=== PATIENT | female | born 2000 | race Caucasian/White ===

== ENCOUNTER 2020-09-16 17:40 | Emergency (ER) | payer BC, OTHER ==
[~2020-09-16] VITALS: Ht 165 cm; Wt 91.4 kg
--- NOTE | 2020-09-16 17:59 | ED General ---
General Chief Complaint: Chest Pain Stated Complaint: CHEST PAIN Nursing Triage Note: Has had intermittent chest pain x 1.5 weeks. Pain is currently rated at 7/10. Can feel heart racing for the past two hours. Has had similar episode years ago and saw a sales coordinator. Was told she had tachycardia but was not placed on any medicine. Nursing Sepsis Screen: No Definite Risk History of Present Illness Date Seen by Provider: Sep 16, 2020 Time Seen by Provider: 17:59 Initial Comments Patient presenting to emergency department for evaluation of chest pain shortness of breath and tachycardia that has been going on for approximately 10 days and she says she felt that the pain was more sharp today and wanted to be seen in the emergency department. She says the pain is in her right mid parasternal region and that shoots into the left subcostal region and associated with shortness of breath and tachycardia. She says that it is present at rest or exertion and nothing she can think of necessarily makes it better or worse including exertion deep breaths movements eating or anything else that she can think of. She says she has seen a sales coordinator for her tachycardia and no specific diagnosis was given and she is not taking any medications. She is in no obvious distress with normal vital signs. Allergies and Home Medications Allergies Coded Allergies: acetaminophen (Verified Allergy, Unknown, states can't take it due to a b ad liver, 09/16/20) latex (Verified Allergy, Unknown, swelling, rash , 09/16/20) Patient Home Medication List Home Medication List Reviewed: Yes Review of Systems Review of Systems Constitutional: no symptoms reported EENTM: no symptoms reported Respiratory: short of breath Cardiovascular: chest pain Gastrointestinal: no symptoms reported Genitourinary: no symptoms reported Musculoskeletal: no symptoms reported Skin: no symptoms reported Psychiatric/Neurological: No Symptoms Reported All Other Systems Reviewed Negative Unless Noted: Yes Past Gfebpwm-Tqdasm-Wfpgjh Hx Patient Social History Alcohol Use: Denies Use Recreational Drug Use: No Smoking Status: Current Everyday Smoker Type Used: Cigarettes Recent Foreign Travel: No Contact w/Someone Who Travel: No Recent Infectious Disease Expo: No Recent Hopitalizations: No Physical Abuse: No Sexual Abuse: No Mistreated: No Fear: No Seasonal Allergies Seasonal Allergies: No Past Medical History Appendectomy, Gallbladder, Orthopedic Respiratory: Yes Asthma Cardiac: Yes (tachycardia ) Neurological: No Genitourinary: No Gastrointestinal: Yes ("bad liver" ) Musculoskeletal: No Endocrine: No HEENT: No Cancer: No Psychosocial: No Integumentary: No Blood Disorders: No Adverse Reaction/Blood Tranf: No Physical Exam Vital Signs Vital Signs - First Documented 09/16/20 17:47 Temp 36.8 Pulse 126 Resp 28 B/P (MAP) 147/70 (95) Pulse Ox 99 Capillary Refill : Less Than 3 Seconds Height, Weight, BMI Height: '" Weight: lbs. oz. kg; 33.00 BMI Method: General Appearance: No Apparent Distress, WD/WN HEENT: PERRL/EOMI Neck: Supple Respiratory: Lungs Clear, Normal Breath Sounds, No Respiratory Distress, Other Cardiovascular: Tachycardia Gastrointestinal: Non Tender, Soft Back: Normal Inspection Extremity: Normal Capillary Refill, No Pedal Edema Neurologic/Psychiatric: Alert, Oriented x3 Skin: Warm/Dry Progress/Results/Core Measures Suspected Sepsis Recent Fever Within 48 Hours: No Infection Criteria Present: None New/Unexplained Altered Menta: No Sepsis Screen: No Definite Risk SIRS Temperature: Pulse: 126 Respiratory Rate: 28 Laboratory Tests 09/16/20 17:55: White Blood Count 12.4H Blood Pressure 147 /70 Mean: 95 Laboratory Tests 09/16/20 17:55: Creatinine 0.59L, Platelet Count 376, Total Bilirubin 0.2 Results/Orders Lab Results Laboratory Tests Test 09/16/20 17:45 09/16/20 17:55 Range/Units Urine Color PALE YELLOW Urine Clarity CLEAR Urine pH 6.5 5-9 Urine Specific Melvin <=1.005 1.016-1.022 Urine Protein NEGATIVE NEGATIVE Urine Glucose (UA) NEGATIVE NEGATIVE Urine Ketones NEGATIVE NEGATIVE Urine Nitrite NEGATIVE NEGATIVE Urine Bilirubin NEGATIVE NEGATIVE Urine Urobilinogen 0.2 < = 1.0 MG/DL Urine Leukocyte Esterase NEGATIVE NEGATIVE Urine RBC (Auto) NEGATIVE NEGATIVE Urine RBC RARE /HPF Urine WBC RARE /HPF Urine Squamous Epithelial Cells 5-10 /HPF Urine Crystals NONE /LPF Urine Bacteria NEGATIVE /HPF Urine Casts NONE /LPF Urine Mucus NEGATIVE /LPF Urine Culture Indicated NO Urine Test NEGATIVE NEGATIVE White Blood Count 12.4 H 4.3-11.0 10^3/uL Red Blood Count 4.97 4.35-5.85 10^6/uL Hemoglobin 14.7 11.5-16.0 G/DL Hematocrit 43 35-52 % Mean Corpuscular Volume 87 80-99 FL Mean Corpuscular Hemoglobin 30 25-34 PG Mean Corpuscular Hemoglobin Concent 34 32-36 G/DL Red Cell Distribution Width 12.5 10.0-14.5 % Platelet Count 376 130-400 10^3/uL Mean Platelet Volume 9.2 7.4-10.4 FL Immature Granulocyte % (Auto) 1 % Neutrophils (%) (Auto) 62 42-75 % Lymphocytes (%) (Auto) 28 12-44 % Monocytes (%) (Auto) 7 0-12 % Eosinophils (%) (Auto) 3 0-10 % Basophils (%) (Auto) 0 0-10 % Neutrophils # (Auto) 7.7 1.8-7.8 X 10^3 Lymphocytes # (Auto) 3.5 1.0-4.0 X 10^3 Monocytes # (Auto) 0.8 0.0-1.0 X 10^3 Eosinophils # (Auto) 0.3 0.0-0.3 10^3/uL Basophils # (Auto) 0.1 0.0-0.1 10^3/uL Immature Granulocyte # (Auto) 0.1 0.0-0.1 10^3/uL D-Dimer 0.22 0.00-0.49 UG/ML Sodium Level 140 135-145 MMOL/L Potassium Level 3.4 L 3.6-5.0 MMOL/L Chloride Level 104 98-107 MMOL/L Carbon Dioxide Level 22 21-32 MMOL/L Anion Gap 14 5-14 MMOL/L Blood Urea Nitrogen 9 7-18 MG/DL Creatinine 0.59 L 0.60-1.30 MG/DL Estimat Glomerular Filtration Rate > 60 BUN/Creatinine Ratio 15 Glucose Level 112 H 70-105 MG/DL Calcium Level 9.0 8.5-10.1 MG/DL Corrected Calcium 8.5-10.1 MG/DL Total Bilirubin 0.2 0.1-1.0 MG/DL Aspartate Amino Transf (AST/SGOT) 14 5-34 U/L Alanine Aminotransferase (ALT/SGPT) 11 0-55 U/L Alkaline Phosphatase 86 40-136 U/L Troponin I < 0.30 <0.30 NG/ML Total Protein 7.5 6.4-8.2 GM/DL Albumin 4.6 H 3.2-4.5 GM/DL [facility] Orders - ARLET MARTINEZ DO Cbc With Automated Diff (09/16/20 18:03) Comprehensive Metabolic Panel (09/16/20 18:03) Hcg,Qualitative Urine (09/16/20 18:03) Chest 1 View Ap/Pa Only (09/16/20 18:03) Ekg Tracing (09/16/20 18:03) Troponin I Fs (09/16/20 18:03) Ua Culture If Indicated (09/16/20 18:03) Fibrin Degradation Products (09/16/20 18:03) Iv/Invasive Line Insertion .IV start (09/16/20 18:03) Fentanyl Injection (Sublimaze Injection (09/16/20 18:15) Ns Iv 1000 Ml (Sodium Chloride 0.9%) (09/16/20 18:15) Ketorolac Injection (Toradol Injection) (09/16/20 18:15) Potassium Chloride (Tablet) (K Dur Table (09/16/20 19:00) Medications Given in ED Current Medications Medications Dose Ordered Sig/Michael Route Start Time Stop Time Status Last Admin Dose Admin Fentanyl Citrate 75 mcg ONCE ONCE IVP 09/16/20 18:15 09/16/20 18:16 DC 09/16/20 18:25 75 MCG Ketorolac Tromethamine 15 mg ONCE ONCE IVP 09/16/20 18:15 09/16/20 18:16 DC 09/16/20 18:26 15 MG Vital Signs/I&O 09/16/20 17:47 Temp 36.8 Pulse 126 Resp 28 B/P (MAP) 147/70 (95) Pulse Ox 99 Capillary Refill : Less Than 3 Seconds Blood Pressure Mean: 95 Progress Note : Progress Note Patient with pain that is atypical for ACS in my opinion and her heart scores equal to 0. Will check labs imaging treat symptoms and reassess. Patient has negative workup and her heart rate has improved into the 80s and she says that her pain has improved. I told her this is likely GI or possibly lung type pain and that she could try taking ibuprofen for her pain and then follow with primary care provider within 2-3 days for recheck and to come back to emergency department with worsening pain fevers vomiting or other general concerns. Patient aware and agreeable with plan for discharge and verbalized understanding of the need for short-term follow-up and strict ED return precautions discussed. Departure Impression Primary Impression: Chest pain at rest Additional Impression: Hypokalemia Disposition: HOME, SELF-CARE Condition: Stable Departure-Patient Inst. Referrals: JOANNE KEATING APRN (PCP/Family) Primary Care Physician Patient Instructions: Chest Pain That Is Not Caused by the Heart (DC) Work/School Note: Work Release Form Date Seen in the Emergency Department: Sep 16, 2020 Return to Work: Sep 17, 2020 Restrictions: No Restrictions ARLET MARTINEZ DO Sep 16, 2020 17:59
[2020-09-16] MEDS ORDERED: NS IV 1000 ML 1,000 ML IV SCH (18:15)
[2020-09-16] MEDS ORDERED: KETOROLAC 30 MG/ML VIAL IVP ONE (18:15)
[2020-09-16] MEDS ORDERED: fentaNYL INJECTION 100 MCG/2 ML AMP IVP ONE (18:15)
--- NOTE | 2020-09-16 18:20 | Diagnostic Imaging Report ---
EXAMINATION: Chest 1 view HISTORY: Chest pain COMPARISON: None available. FINDINGS: Heart size and pulmonary vasculature are normal. The lungs are clear without consolidation, pleural effusion, or pneumothorax. The osseous structures are intact. IMPRESSION: 1. No acute radiographic abnormality in the chest. Dictated by: Dictated on workstation # [id number]
[2020-09-16 18:39] LABS: BASOPHILS # (AUTO) 0.1 10^3/uL (0.0-0.1); BASOPHILS % (AUTO) 0 % (0-10); EOSINOPHILS # (AUTO) 0.3 10^3/uL (0.0-0.3); EOSINOPHILS % (AUTO) 3 % (0-10); HEMATOCRIT 43 % (35-52); HEMOGLOBIN 14.7 G/DL (11.5-16.0); LYMPHOCYTES # (AUTO) 3.5 X 10^3 (1.0-4.0); LYMPHOCYTES % (AUTO) 28 % (12-44); MEAN CORPUSCULAR HEMOGLOBIN 30 PG (25-34); MEAN CORPUSCULAR HGB CONC 34 G/DL (32-36); MEAN CORPUSCULAR VOLUME 87 FL (80-99); MEAN PLATELET VOLUME 9.2 FL (7.4-10.4); MONOCYTES # (AUTO) 0.8 X 10^3 (0.0-1.0); MONOCYTES % (AUTO) 7 % (0-12); NEUTROPHILS # (AUTO) 7.7 X 10^3 (1.8-7.8); NEUTROPHILS % (AUTO) 62 % (42-75); PLATELET COUNT 376 10^3/uL (130-400); WHITE BLOOD COUNT 12.4 10^3/uL (4.3-11.0)
[2020-09-16 18:40] LABS: BILIRUBIN,TOTAL 0.2 MG/DL (0.1-1.0); BUN/CREATININE RATIO 15; CARBON DIOXIDE 22 MMOL/L (21-32); CHLORIDE 104 MMOL/L (98-107); CREATININE SERUM 0.59 MG/DL (0.60-1.30); GFR ESTIMATED > 60; GLUCOSE 112 MG/DL (70-105); POTASSIUM 3.4 MMOL/L (3.6-5.0); SODIUM 140 MMOL/L (135-145)
[2020-09-16 18:41] LABS: ALANINE AMINOTRANSFERASE 11 U/L (0-55); ALBUMIN 4.6 GM/DL (3.2-4.5); ALKALINE PHOSPHATASE 86 U/L (40-136); TOTAL PROTEIN 7.5 GM/DL (6.4-8.2)
[2020-09-16 18:44] LABS: BACTERIA,URINE NEGATIVE /HPF; BILIRUBIN,URINE NEGATIVE (NEGATIVE); CLARITY,URINE CLEAR; COLOR,URINE PALE YELLOW; GLUCOSE, URINE (UA) NEGATIVE (NEGATIVE); KETONES,URINE NEGATIVE (NEGATIVE); LEUKOCYTE ESTERASE ,URINE NEGATIVE (NEGATIVE); NITRITE,URINE NEGATIVE (NEGATIVE); PH,URINE 6.5 (5-9); PROTEIN,URINE NEGATIVE (NEGATIVE); RBC,URINE RARE /HPF; WBC,URINE RARE /HPF
[2020-09-16] MEDS ORDERED: KCL 20 MEQ TAB (K-DUR) PO ONE (19:00)
[2020-09-16 19:11] VITALS: BP 122/71
== END 2020-09-16 19:11 | disposition home or self-care (01) ==
LOC: ER FS 17:41
DX: R07.9 Chest pain, unspecified (principal); E87.6 Hypokalemia; F17.210 Nicotine dependence, cigarettes, uncomplicated; Z91.040 Latex allergy status; Z88.6 Allergy status to analgesic agent
CPT/HCPCS: 36415; 71045; 80053; 81000; 84484; 84703; 85025; 85379; 93005

== ENCOUNTER → 2020-10-13 | Outpatient (CLI) | payer BC | LOC: CARD 13:00 | PROVIDERS: ATTEND Internal Medicine Cardiovascular Disease | DX: R00.2 Palpitations (principal); R07.89 Other chest pain; R06.02 Shortness of breath | CPT/HCPCS: 36415; 84443; 93225; 93226; 93306; 93351 ==

== ENCOUNTER 2021-01-18 06:39 | Outpatient (CLI) | payer BC, OTHER ==
[~2021-01-18] VITALS: Ht 165.1 cm; Wt 88.6 kg
[2021-01-18] MEDS ORDERED: ATEN25TA PO (14:46)
== END 2021-01-18 14:51 ==
LOC: PREOP 06:39
PROVIDERS: ATTEND Obstetrics & Gynecology
DX: Z01.812 Encounter for preprocedural laboratory examination (principal); R10.2 Pelvic and perineal pain; R06.00 Dyspnea, unspecified

== ENCOUNTER 2021-01-25 08:32 | Day surgery (SDC) | payer BC, OTHER ==
[2021-01-25] VITALS (11 sets, daily range): BP systolic 98–117; BP diastolic 55–82
[~2021-01-25] VITALS: Ht 165.1 cm; Wt 88.6 kg
[~2021-01-25 08:32] MED LIST: ATEN25TA PO
[2021-01-25] MEDS ORDERED: METHYLENE BLUE 0.5% (PROVAYBLUE) 50 mg/10 ml vial IV ONE (09:16)
[2021-01-25] MEDS ORDERED: BUPIVACAINE 0.25% 30 ML (SENSORCAINE) VIAL ONE (09:16)
[2021-01-25] MEDS: LACTATED RINGERS 1,000 ML IV PRN ×2 (09:51→10:52)
[2021-01-25 09:54] LABS: BASOPHILS # (AUTO) 0.1 10^3/uL (0.0-0.1); BASOPHILS % (AUTO) 1 % (0-10); EOSINOPHILS # (AUTO) 0.4 10^3/uL (0.0-0.3); EOSINOPHILS % (AUTO) 5 % (0-10); HEMATOCRIT 37 % (35-52); HEMOGLOBIN 12.6 g/dL (11.5-16.0); LYMPHOCYTES # (AUTO) 3.1 10^3/uL (1.0-4.0); LYMPHOCYTES % (AUTO) 36 % (12-44); MEAN CORPUSCULAR HEMOGLOBIN 30 pg (25-34); MEAN CORPUSCULAR HGB CONC 34 g/dL (32-36); MEAN CORPUSCULAR VOLUME 87 fL (80-99); MEAN PLATELET VOLUME 9.4 fL (9.0-12.2); MONOCYTES # (AUTO) 0.6 10^3/uL (0.0-1.0); MONOCYTES % (AUTO) 7 % (0-12); NEUTROPHILS # (AUTO) 4.5 10^3/uL (1.8-7.8); NEUTROPHILS % (AUTO) 52 % (42-75); PLATELET COUNT 272 10^3/uL (130-400); WHITE BLOOD COUNT 8.6 10^3/uL (4.3-11.0)
[2021-01-25] MEDS ORDERED: RT-ALBUINH INH (10:01)
--- NOTE | 2021-01-25 10:10 | History & Physical-Surgical ---
HPO-Surgical History of Present Illness Chief Complaint: Chronic pelvic pain, Dysmenorrhea Diagnosis/Surgical Indication: CPP, dysparuria Procedure: DXLS with chromotubation Date of Surgery: Jan 25, 2021 Allergies and Home Medications Allergies Coded Allergies: acetaminophen (Verified Allergy, Unknown, states can't take it due to a bad liver, 09/16/20) lamotrigine (Verified Allergy, Unknown, 01/18/21) latex (Verified Allergy, Unknown, swelling, rash , 09/16/20) vinyl ether (Verified Allergy, Unknown, 01/18/21) Home Medications Albuterol Sulfate 1 Puff Puff, 2 PUFF INH Q8H, (Reported) 1 PUFF = 90 MCG Atenolol 25 Mg Tablet, 25 MG PO DAILY, (Reported) Patient Home Medication List Home Medication List Reviewed: Yes Past Gqxmubv-Wnduyj-Dcrqob Hx Patient Social History Recent Hopitalizations: No Seasonal Allergies Seasonal Allergies: No Surgeries Appendectomy, Gallbladder, Orthopedic Respiratory Yes Cardiovascular Yes (tachycardia ) Neurological No Genitourinary No Gastrointestinal Yes ("bad liver" ) Musculoskeletal No Endocrine History of Endocrine Disorders: No HEENT History of HEENT Disorders: No Cancer No Psychosocial History of Psychiatric Problem: No Integumentary History of Skin or Integumenta: No Blood Transfusions History of Blood Disorders: No Adverse Reaction to a Blood Tr: No Exam Vital Signs Capillary Refill : Labs Laboratory Tests Test 01/25/21 09:30 Range/Units White Blood Count 8.6 4.3-11.0 10^3/uL Red Blood Count 4.23 3.80-5.11 10^6/uL Hemoglobin 12.6 11.5-16.0 g/dL Hematocrit 37 35-52 % Mean Corpuscular Volume 87 80-99 fL Mean Corpuscular Hemoglobin 30 25-34 pg Mean Corpuscular Hemoglobin Concent 34 32-36 g/dL Red Cell Distribution Width 12.2 10.0-14.5 % Platelet Count 272 130-400 10^3/uL Mean Platelet Volume 9.4 9.0-12.2 fL Immature Granulocyte % (Auto) 0 % Neutrophils (%) (Auto) 52 42-75 % Lymphocytes (%) (Auto) 36 12-44 % Monocytes (%) (Auto) 7 0-12 % Eosinophils (%) (Auto) 5 0-10 % Basophils (%) (Auto) 1 0-10 % Neutrophils # (Auto) 4.5 1.8-7.8 10^3/uL Lymphocytes # (Auto) 3.1 1.0-4.0 10^3/uL Monocytes # (Auto) 0.6 0.0-1.0 10^3/uL Eosinophils # (Auto) 0.4 H 0.0-0.3 10^3/uL Basophils # (Auto) 0.1 0.0-0.1 10^3/uL Immature Granulocyte # (Auto) 0.0 0.0-0.1 10^3/uL General Appearance: Alert, Oriented X3 HEENT: Atraumatic Respiratory: Clear to Auscultation Cardiovascular: Regular Rate Abdominal: Normal Bowel Sounds Extremities: No Clubbing Skin: No Rashes Neuro: Normal Gait Psych/Mental Status: Mental Status NL Assessment/Plan Assessment and Plan Diagnosis: 20 yo G0 with chronic pelvic pain Dysmenorrhea Plan: Diagnostic laparoscopy w/ chromotubation. Admission Diagnosis Admission Status: Other (Outpt Proc) BRICE LAKE DO Jan 25, 2021 10:10
[2021-01-25] MEDS ORDERED: fentaNYL INJ 100 MCG/2 ML AMP ONE (10:13)
[2021-01-25] MEDS ORDERED: MIDAZOLAM 2 MG/2 ML (VERSED) VIAL ONE (10:13)
--- NOTE | 2021-01-25 10:13 | Discharge Inst-Women's Service ---
Discharge Inst-Women's Serv Depart Medication/Instructions New, Converted or Re-Newed RX: RX on Chart Problems Reviewed?: Yes Consults/Follow Up Additional Follow Up: Yes Orders/Referrals Dr. Story in 7-10 days Activity Activity: Activity as Tolerated Driving Instructions: No Driving for 1 Week NO SMOKING: NO SMOKING Nothing Inside Vagina: No Douching, No [place], No Tampons Diet Discharge Diet: No Restrictions Symptoms to Report to : Bleeding Excessive, Pain Increased, Fever Over 101 Degrees F, Vaginal Bleeding Increase, Questions/Concerns For Any Problems or Questions: Contact Your Physician Skin/Wound Care Infection Signs and Symptoms: Increased Redness, Foul Odor of Wound, Increased Drainage, Skin Itchy or Has a Rash, Increased Swelling, Temperature Above 101 F Operative Area Clean and Dry: Keep Incision Clean/Dry Stitches/King/Dermabond: Dermabond, Care of Stitches Bathing Instructions: BRICE Ross DO Jan 25, 2021 10:13
[2021-01-25] MEDS ORDERED: ACHD5005 PO (10:14)
[2021-01-25] MEDS ORDERED: IBUP-1773 PO (10:14)
[2021-01-25] MEDS ORDERED: D5 LR IV SOLUTION 1,000 ML IV SCH (10:15)
[2021-01-25] MEDS ORDERED: ONDANSETRON 4 MG/2 ML (SDV) Z0FRAN IVP PRN ×2 (10:15→11:30)
[2021-01-25] MEDS ORDERED: KETOROLAC 30 MG/ML VIAL IVP ONE (10:15)
[2021-01-25] MEDS ORDERED: HYDROcodone/APAP 5 MG/325 MG (LORTAB) TAB PO PRN (10:15)
[2021-01-25] MEDS ORDERED: HYDROmorphone 2 MG/ML VIAL (DILAUDID) ONE (10:53)
[2021-01-25] MEDS ORDERED: morphine INJ 10 MG/ML 1ML (SYR OR VIAL) IVP ONE (11:30)
[2021-01-25] MEDS ORDERED: HYDROmorphone 2 MG/ML VIAL (DILAUDID) IV ONE (11:30)
[2021-01-25] MEDS ORDERED: PROMETHAZINE INJ 25 MG/ML (PHENERGAN) AMP IVP ONE (11:30)
[2021-01-25] MEDS ORDERED: KETOROLAC 30 MG/ML VIAL ONE (11:34)
[2021-01-25] MEDS ORDERED: ROCURONIUM 10 MG/ML 5 ML SYRINGE IV ONE (12:15)
[2021-01-25] MEDS ORDERED: proPOfol 200 MG/20 ML (DIPRIVAN) VIAL IV ONE (12:15)
[2021-01-25] MEDS ORDERED: GLYCOPYRROLATE 0.2 MG/ML (ROBINUL) 2 ML VIAL ONE (12:15)
[2021-01-25] MEDS ORDERED: SEVOFLURANE (ULTANE) 15 ML INHAL SOLN ONE (12:15)
[2021-01-25] MEDS ORDERED: ONDANSETRON 4 MG/2 ML (SDV) Z0FRAN ONE (12:15)
[2021-01-25] MEDS ORDERED: LIDOCAINE PF 2% 5 ML (XYLOCAINE) VIAL ONE (12:15)
[2021-01-25] MEDS ORDERED: NEOSTIGMINE 3 MG/3 ML VIAL ONE (12:15)
--- NOTE | 2021-01-25 12:50 | Anesthesia-General Post-Op ---
General Patient Condition Mental Status/LOC: Same as Preop Cardiovascular: Satisfactory Nausea/Vomiting: Absent Respiratory: Satisfactory Pain: Controlled Complications: Absent Post Op Complications Complications None Follow Up Care/Instructions Patient Instructions None needed. Anesthesia/Patient Condition Patient Condition Patient is doing well, no complaints, stable vital signs, no apparent adverse anesthesia problems. No complications reported per nursing. TAM PEREZ CRNA Jan 25, 2021 12:50
--- NOTE | 2021-01-25 20:39 | OPERATIVE REPORT ---
DATE OF SERVICE: PREOPERATIVE DIAGNOSES: 1. A 20-year-old female with dysmenorrhea. 2. Chronic pelvic pain. POSTOPERATIVE DIAGNOSES: 1. A 20-year-old female with dysmenorrhea. 2. Chronic pelvic pain. 3. Endometriosis implants of the bilateral ovarian fossa. PROCEDURES PERFORMED: Operative laparoscopy with cauterization of endometriosis implants and chromotubation. SURGEON: Brice Lake DO. ANESTHESIA: LMA general. ESTIMATED BLOOD LOSS: Minimal. URINE OUTPUT: 150 mL clear at the end of the procedure. FLUIDS: 800 mL lactated Ringer's solution. FINDINGS: A grossly normal appearing bilateral fallopian tubes with spillage of methylene blue dye from the right fallopian tube, grossly normal-appearing uterus, grossly normal appearing bilateral ovaries. Endometriosis implants that appeared dark and hemosiderin laden in the bilateral ovarian fossa. Otherwise, grossly normal serosal surfaces of the pelvic anatomy. SPECIMEN SENT: None. INDICATIONS FOR PROCEDURE: This 20-year-old female is a patient, who have self-consulted to my office for chronic pelvic pain and pain with periods. She had researched and suspected that she may have endometriosis and stated that she it had run in her family in the past. I discussed with the patient in detail the first measures for dealing with endometriosis including contraceptive management and NSAID therapy, both of which she had tried without any kind of improvement in her symptoms and she is wanting to find out more. We also discussed her desire for fertility and she is wanting to know if her fallopian tubes were actually patent as she is not using anything for contraception at the time. Therefore, we discussed proceeding with chromotubation. Risks of the procedure were discussed with the patient in detail including risk of bleeding, infection, damage to the surrounding structures including, but not limited to bowel, bladder, ureter, kidneys, possible need for reoperation, postoperative complications that may occur, risk from anesthesia, recovery timeframe and even . After everything was discussed with the patient in detail, consent was obtained in the preoperative area and the patient was taken to the operating room. OPERATIVE REPORT IN DETAIL: Once in the operating room, general anesthesia was found to be adequate. She was placed in the dorsal lithotomy position and prepped and draped in a normal sterile fashion. Timeout was performed. A Sarmiento catheter was placed using a sterile technique. Weighted speculum was inserted into the patient's vagina. Right angle retractor was used to visualize the cervix. It was grasped at 12 o'clock position using a long Allis clamp. I then gently sounded the uterine cavity, depth was found to be 8 cm. I placed a Kronner uterine manipulator to a depth of 8 cm. I removed all the other instruments from the patient's vagina, performed a change of gloves, obtained my attention to the abdomen, where infraumbilically I infiltrated this area using 0.25% Marcaine. I made a 5 mm incision with a knife and directed Veress needle through the incision until intraperitoneal placement was confirmed using saline drop test. Opening pressure of 3 mmHg was noted and proceeded to a maximum pressure of 15 mmHg, at which point I removed the Veress needle and introduced a 5 mm blunt laparoscopic trocar. Once this was in place, I was able to confirm intraperitoneal placement using the laparoscope. There was no evidence of damage upon my entry. I then placed the patient in a steep Trendelenburg after briefly scanning the upper abdominal anatomy, which appears to be grossly normal. Once in a steep Trendelenburg, I was able to visualize all my pelvic anatomy as defined in my findings above. I then placed two other trocars, which to perform the cauterization of the endometriosis. These were suprapubic trocar and a left lower quadrant trocar. They are both placed in similar fashion with 5 mm incisions. Once both of these were in place, under direct visualization of laparoscope, I began by expecting all of the pelvic anatomy and then cauterizing the endometriosis implants I was able to find. I then performed a chromotubation using methylene blue, which was diluted in 100 mL of normal saline. There was rapid and adequate spillage of the dye from the right fallopian tube. The left fallopian tube does not show any evidence of patency. However, it may be positional due to the Kronner uterine manipulator, after which, due to tubal patency being confirmed in the right fallopian tube, I had the patient taken out of steep Trendelenburg and then copiously irrigated the pelvis using normal saline. Once again, there was no active bleeding from any of my dissection planes. I removed all the lower trocars under direct visualization of laparoscope. The infraumbilical trocar was left in place to release insufflation and I introduced 10 mL of 0.25% Marcaine into the peritoneal cavity for postoperative pain management. I then removed this trocar as well. The skin was reapproximated using Dermabond and Band-Aids were placed over the incisions. The Kronner uterine manipulator and Sarmiento catheter were removed at the end of the procedure. The patient tolerated the procedure well and was sent to the recovery area in a stable condition. Lap and sponge counts were correct at the end of the procedure. Instrument counts were correct as well. Job ID: [id number] DocumentID: [id number] Dictated Date: 01/25/2021 11:23:39 Consulting Networking Engineer Date: 01/25/2021 20:39:30 Dictated By: BRICE LAKE DO
== END 2021-01-25 13:52 | disposition home or self-care (01) ==
LOC: SDC 08:32
PROVIDERS: ATTEND Obstetrics & Gynecology
DX: N94.6 Dysmenorrhea, unspecified (principal); N80.1 Endometriosis of ovary; J30.2 Other seasonal allergic rhinitis; E66.9 Obesity, unspecified; G89.29 Other chronic pain; F17.210 Nicotine dependence, cigarettes, uncomplicated; Z68.32 Body mass index [BMI] 32.0-32.9, adult; Z91.040 Latex allergy status; Z88.6 Allergy status to analgesic agent; Z88.8 Allergy status to other drugs, medicaments and biological substances; Z79.899 Other long term (current) drug therapy; Z90.89 Acquired absence of other organs
CPT/HCPCS: 36415; 84703; 85025; 86850; 86900; 86901; 87081

== ENCOUNTER → 2021-06-29 | Outpatient (CLI) | payer OTHER ==
[~2021-06-29] MED LIST changes: +ACHD5005 PO; +IBUP-1773 PO; +RT-ALBUINH INH
== END ==
LOC: LAB FS 12:32
PROVIDERS: ATTEND Obstetrics & Gynecology
DX: N97.0 Female infertility associated with anovulation (principal)
CPT/HCPCS: 36415; 84144

== ENCOUNTER → 2021-07-28 | Outpatient (CLI) | payer OTHER | LOC: LAB FS 15:13 | PROVIDERS: ATTEND Obstetrics & Gynecology | DX: N97.0 Female infertility associated with anovulation (principal) | CPT/HCPCS: 36415; 84144 ==

== ENCOUNTER → 2021-10-12 | Outpatient (CLI) | payer OTHER | LOC: LAB FS 16:34 | PROVIDERS: ATTEND Family Medicine | DX: Z33.1 Pregnant state, incidental (principal) | CPT/HCPCS: 36415; 84702 ==

== ENCOUNTER → 2021-10-14 | Outpatient (CLI) | payer OTHER | LOC: LAB FS 07:34 | PROVIDERS: ATTEND Obstetrics & Gynecology | DX: Z36.89 Encounter for other specified antenatal screening (principal) | CPT/HCPCS: 36415; 84144; 84702 ==

== ENCOUNTER → 2021-11-05 | Outpatient (CLI) | payer OTHER ==
[2021-11-05 16:16] LABS: HEMATOCRIT 37 % (35-52); HEMOGLOBIN 12.4 g/dL (11.5-16.0); MEAN CORPUSCULAR HEMOGLOBIN 29 pg (25-34); MEAN CORPUSCULAR HGB CONC 34 g/dL (32-36); MEAN CORPUSCULAR VOLUME 87 fL (80-99); PLATELET COUNT 365 10^3/uL (130-400); WHITE BLOOD COUNT 9.6 10^3/uL (4.3-11.0)
[2021-11-05 16:17] LABS: MEAN PLATELET VOLUME 8.9 fL (9.0-12.2)
== END ==
LOC: LAB FS 15:22
PROVIDERS: ATTEND Family Medicine
DX: Z34.91 Encounter for supervision of normal pregnancy, unspecified, first trimester (principal); Z3A.00 Weeks of gestation of pregnancy not specified
CPT/HCPCS: 36415; 85027; 86592; 86703; 86762; 86850; 86900; 86901; 87088; 87340

== ENCOUNTER → 2022-03-22 | Outpatient (CLI) | payer OTHER | LOC: LAB FS 07:41 | PROVIDERS: ATTEND Family Medicine | DX: Z33.1 Pregnant state, incidental (principal) | CPT/HCPCS: 36415; 82950 ==

== ENCOUNTER → 2022-03-28 | Outpatient (CLI) | payer OTHER ==
[2022-03-28 10:18] LABS: HEMATOCRIT 34 % (35-52); HEMOGLOBIN 11.5 g/dL (11.5-16.0); MEAN CORPUSCULAR HEMOGLOBIN 30 pg (25-34); MEAN CORPUSCULAR HGB CONC 34 g/dL (32-36); MEAN CORPUSCULAR VOLUME 88 fL (80-99); MEAN PLATELET VOLUME 9.2 fL (9.0-12.2); PLATELET COUNT 270 10^3/uL (130-400); WHITE BLOOD COUNT 9.8 10^3/uL (4.3-11.0)
== END ==
LOC: LAB 09:35
PROVIDERS: ATTEND Family Medicine
DX: Z34.92 Encounter for supervision of normal pregnancy, unspecified, second trimester (principal); Z3A.00 Weeks of gestation of pregnancy not specified
CPT/HCPCS: 36415; 82947; 82951; 82952; 85027; 86780

== ENCOUNTER → 2022-04-11 | Outpatient (CLI) | payer OTHER | LOC: LABNPT 14:42 | PROVIDERS: ATTEND Family Medicine | DX: R10.9 Unspecified abdominal pain (principal) | CPT/HCPCS: 87088 ==

== ENCOUNTER → 2022-04-11 | Outpatient (CLI) | payer OTHER ==
[2022-04-11 12:49] LABS: BASOPHILS % (AUTO) 0 % (0-10); EOSINOPHILS # (AUTO) 0.1 10^3/uL (0.0-0.3); EOSINOPHILS % (AUTO) 1 % (0-10); HEMATOCRIT 34 % (35-52); HEMOGLOBIN 11.6 g/dL (11.5-16.0); LYMPHOCYTES # (AUTO) 2.4 10^3/uL (1.0-4.0); LYMPHOCYTES % (AUTO) 21 % (12-44); MEAN CORPUSCULAR HEMOGLOBIN 29 pg (25-34); MEAN CORPUSCULAR HGB CONC 34 g/dL (32-36); MEAN CORPUSCULAR VOLUME 86 fL (80-99); MEAN PLATELET VOLUME 9.4 fL (9.0-12.2); MONOCYTES % (AUTO) 9 % (0-12); NEUTROPHILS % (AUTO) 69 % (42-75); PLATELET COUNT 293 10^3/uL (130-400); WHITE BLOOD COUNT 11.6 10^3/uL (4.3-11.0)
[2022-04-11 13:17] LABS: CREATININE SERUM 0.41 MG/DL (0.60-1.30); POTASSIUM 3.6 MMOL/L (3.6-5.0)
[2022-04-11 13:18] LABS: ALBUMIN 3.6 GM/DL (3.2-4.5); BILIRUBIN,TOTAL 0.2 MG/DL (0.1-1.0); CALCIUM 8.2 MG/DL (8.5-10.1); TOTAL PROTEIN 6.5 GM/DL (6.4-8.2)
[2022-04-11 14:45] LABS: URIC ACID 3.9 MG/DL (2.6-7.2)
== END ==
LOC: LAB FS 12:08
PROVIDERS: ATTEND Family Medicine
DX: O13.9 Gestational [pregnancy-induced] hypertension without significant proteinuria, unspecified trimester (principal); Z3A.00 Weeks of gestation of pregnancy not specified
CPT/HCPCS: 36415; 80053; 82570; 83615; 84156; 84550; 85025

== ENCOUNTER → 2022-04-25 | Outpatient (CLI) | payer OTHER ==
[2022-04-25 08:07] LABS: BASOPHILS % (AUTO) 0 % (0-10); EOSINOPHILS # (AUTO) 0.2 10^3/uL (0.0-0.3); EOSINOPHILS % (AUTO) 2 % (0-10); HEMATOCRIT 32 % (35-52); HEMOGLOBIN 11.1 g/dL (11.5-16.0); LYMPHOCYTES # (AUTO) 2.3 10^3/uL (1.0-4.0); LYMPHOCYTES % (AUTO) 27 % (12-44); MEAN CORPUSCULAR HEMOGLOBIN 29 pg (25-34); MEAN CORPUSCULAR HGB CONC 34 g/dL (32-36); MEAN CORPUSCULAR VOLUME 85 fL (80-99); MEAN PLATELET VOLUME 9.2 fL (9.0-12.2); MONOCYTES # (AUTO) 0.6 10^3/uL (0.0-1.0); MONOCYTES % (AUTO) 7 % (0-12); NEUTROPHILS # (AUTO) 5.3 10^3/uL (1.8-7.8); NEUTROPHILS % (AUTO) 63 % (42-75); PLATELET COUNT 273 10^3/uL (130-400); WHITE BLOOD COUNT 8.5 10^3/uL (4.3-11.0)
[2022-04-25 10:48] LABS: SODIUM 138 MMOL/L (135-145)
[2022-04-25 10:49] LABS: ALANINE AMINOTRANSFERASE 10 U/L (0-55); ALBUMIN 3.2 GM/DL (3.2-4.5); ALKALINE PHOSPHATASE 102 U/L (40-136); BILIRUBIN,TOTAL < 0.2 MG/DL (0.1-1.0); BUN/CREATININE RATIO 12; CALCIUM 8.4 MG/DL (8.5-10.1); CARBON DIOXIDE 22 MMOL/L (21-32); CHLORIDE 105 MMOL/L (98-107); CREATININE SERUM 0.41 MG/DL (0.60-1.30); GFR ESTIMATED 143; GLUCOSE 95 MG/DL (70-105); POTASSIUM 3.3 MMOL/L (3.6-5.0)
[2022-04-25 15:19] LABS: URIC ACID 4.1 MG/DL (2.6-7.2)
== END ==
LOC: LAB FS 07:37
PROVIDERS: ATTEND Family Medicine
DX: O13.9 Gestational [pregnancy-induced] hypertension without significant proteinuria, unspecified trimester (principal); Z3A.00 Weeks of gestation of pregnancy not specified
CPT/HCPCS: 36415; 80053; 82570; 83615; 84156; 84550; 85025

== ENCOUNTER → 2022-05-12 | Outpatient (CLI) | payer OTHER | LOC: LABNPT 14:47 | PROVIDERS: ATTEND Family Medicine | DX: Z33.1 Pregnant state, incidental (principal) | CPT/HCPCS: 87081 ==

== ENCOUNTER 2022-06-08 13:51 | Inpatient (IN) | payer OTHER ==
[~2022-06-08] VITALS: Ht 165.1 cm; Wt 115.5 kg
[2022-06-08] VITALS (15 sets, daily range): BP systolic 80–156; BP diastolic 57–82
[2022-06-08] MEDS ORDERED: D5 LR IV SOLUTION 1,000 ML IV ONE (14:13)
[2022-06-08] MEDS ORDERED: OXYTOCIN PRE-MIX DRIP 500 ML IV SCH (14:15)
[2022-06-08] MEDS: D5 LR IV SOLUTION 1,000 ML IV SCH ×2 (14:43→18:05)
[2022-06-08 15:22] LABS: BASOPHILS % (AUTO) 0 % (0-10); EOSINOPHILS # (AUTO) 0.1 10^3/uL (0.0-0.3); EOSINOPHILS % (AUTO) 1 % (0-10); HEMATOCRIT 34 % (35-52); HEMOGLOBIN 11.3 g/dL (11.5-16.0); LYMPHOCYTES # (AUTO) 2.3 X 10^3 (1.0-4.0); LYMPHOCYTES % (AUTO) 24 % (12-44); MEAN CORPUSCULAR HEMOGLOBIN 28 pg (25-34); MEAN CORPUSCULAR HGB CONC 33 g/dL (32-36); MEAN CORPUSCULAR VOLUME 84 fL (80-99); MEAN PLATELET VOLUME 9.9 fL (9.0-12.2); MONOCYTES # (AUTO) 0.8 X 10^3 (0.0-1.0); MONOCYTES % (AUTO) 8 % (0-12); NEUTROPHILS # (AUTO) 6.4 X 10^3 (1.8-7.8); NEUTROPHILS % (AUTO) 67 % (42-75); PLATELET COUNT 379 10^3/uL (130-400); WHITE BLOOD COUNT 9.7 10^3/uL (4.3-11.0)
[2022-06-08 15:31] LABS: ALBUMIN 3.3 GM/DL (3.2-4.5); BILIRUBIN,TOTAL 0.2 MG/DL (0.1-1.0); CALCIUM 8.9 MG/DL (8.5-10.1); CREATININE SERUM 0.61 MG/DL (0.60-1.30); POTASSIUM 3.5 MMOL/L (3.6-5.0); TOTAL PROTEIN 6.5 GM/DL (6.4-8.2)
[2022-06-08] MEDS: ACETAMINOPHEN 500 MG TAB (TYLENOL) PO PRN (17:46)
[2022-06-08] MEDS ORDERED: BUTORPHANOL INJ 2 MG/ML (STADOL) VIAL ONE (18:23)
[2022-06-08] MEDS: BUTORPHANOL INJ 2 MG/ML (STADOL) VIAL IV PRN ×2 (18:28→20:18)
[2022-06-08] MEDS ORDERED: CATHETER FLUSH 10 ML SYR IV SCH (22:00)
[2022-06-09] VITALS (63 sets, daily range): BP systolic 100–140; BP diastolic 55–90
[2022-06-09] MEDS: BUTORPHANOL INJ 2 MG/ML (STADOL) VIAL IV PRN (00:09)
[2022-06-09] MEDS: D5 LR IV SOLUTION 1,000 ML IV SCH ×3 (00:45→13:29)
--- NOTE | 2022-06-09 00:45 | HISTORY AND PHYSICAL ---
DATE OF SERVICE: CHIEF COMPLAINT: BPP 4/8, attempted placement of Sarmiento bulb. HISTORY OF PRESENT ILLNESS: This is a 21-year-old 2, para 0-1-0-1, at 38 weeks and 4 days gestation, who was sent in by Dr. Olivera's office with a BPP of 4/8 off for tone and movement. The patient was having BPPs for gestational hypertension. Feels normal movement now, occasional cramping. Denies leaking of fluid or bleeding. Denies chest pain, shortness of air, cough, fevers, chills. No other complaints. PAST OBSTETRICAL HISTORY: Spontaneous vaginal delivery at 36 weeks x1. Her current complicated by gestational hypertension with sporadically elevated blood pressures in the office, but all have been normal since 35 weeks' gestation. PAST MEDICAL HISTORY: No current active medical problems. PAST SURGICAL HISTORY: Cholecystectomy, appendectomy, hip surgery. MEDICATIONS: vitamins. ALLERGIES: Please see nurses' notes. REVIEW OF SYSTEMS: She is accompanied by father of the baby. Denies tobacco, alcohol or drug use. 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 FAMILY HISTORY: Briefly reviewed, noncontributory. PHYSICAL EXAMINATION: VITAL SIGNS: Stable. She is afebrile. heart tones are category 1 and reactive giving her a BPP of 6/10. Vital signs are stable. She is afebrile. Blood pressures on initial evaluation are all normal. Did have one mildly elevated during attempted placement of Sarmiento bulb, but she denies headache, blurry vision, right upper quadrant pain. GENERAL: Alert and oriented x3, in no acute distress, resting comfortably in bed, obese. CHEST: Nonlabored. HEENT: Normocephalic, atraumatic. ABDOMEN: Gravid, obese, nontender. EXTREMITIES: Nontender. Cervical exam is fingertip, thick and high vertex, vulva without lesions. Urethra no masses or discharge. CBC and CMP unremarkable. EXTREMITIES: Nontender. IMPRESSION: G2, P0-1-0-1 at 38 weeks and 4 days' gestation with equivocal antepartum testing and gestational hypertension. PLAN: I discussed with the patient findings and recommendations to proceed with delivery. Risks of prematurity are outweighed at this point with clinical diagnoses and antepartum testing results. The patient is concerned about potential risk of and counseled with a previous vaginal delivery that risk is reduced, although still exist whenever an induction is performed, especially if there is any intolerance. Consent was obtained. Sarmiento bulb placed and ____ following. Questions answered to her satisfaction. PROCEDURE: Attempted to place Cook Sarmiento balloon by digital exam unsuccessful due to cervix being fingertip and obesity. Attempted to place with speculum; however, vaginal sidewalls fell into the view and was difficult to visualize the cervix. Instead, a 16-Amharic Sarmiento catheter was obtained and placed with guidewire without difficulty placing 60 mL of normal saline. The patient tolerated the procedure well and will continue to wait for expulsion. Job ID: [id number] DocumentID: [id number] Dictated Date: 06/08/2022 17:22:19 Architectural Wood Model Maker Date: 06/09/2022 00:07:53 Dictated By: Marianna Walker MD
[2022-06-09] MEDS: ACETAMINOPHEN 500 MG TAB (TYLENOL) PO PRN (03:14)
--- NOTE | 2022-06-09 07:18 | Labor Progress Note ---
Labor Progress Note Labor Progress Note Date Seen by Provider: Jun 09, 2022 Time Seen by Provider: 07:00 Subjective: Pt denies complaints. Objective: (Can we insert 24 hour vitals here?) Cervical exam: 4.5/50/-3 Consistency: [] Position: [] Presentation: [vtx] heart tones: cat I Tocometer: [2-3] ctx/10 minutes AROM with amnihook - clear fluid, head well-applied to cervix Assessment/Plan: Doris Camacho is a (21 /Para / ,Gestational Age (wks)37 here for []. CEFM/TOCO Continue pitocin/ Anesthesia: per her request Anticipate vaginal delivery. Vitals - Labs Vital Signs - I&O Vital Signs Date Time Temp Pulse Resp B/P (MAP) Pulse Ox O2 Delivery O2 Flow Rate FiO2 06/09/22 07:00 69 18 128/78 (95) Room Air 06/09/22 06:45 82 18 114/74 (87) Room Air 06/09/22 06:30 92 18 102/57 (72) Room Air 06/09/22 06:15 71 18 106/60 (75) Room Air 06/09/22 06:00 76 18 132/84 (100) Room Air 06/09/22 05:45 85 18 113/69 (84) Room Air 06/09/22 05:30 73 18 131/77 (95) Room Air 06/09/22 05:15 65 18 128/73 (91) Room Air 06/09/22 04:30 36.9 06/09/22 04:00 71 18 119/81 (94) Room Air 06/09/22 03:00 72 18 111/63 (79) Room Air 06/09/22 02:00 78 18 138/67 (90) Room Air 06/09/22 01:00 73 18 118/65 (82) Room Air 06/09/22 00:00 77 18 117/77 (90) Room Air 06/08/22 23:00 76 18 119/73 (88) Room Air 06/08/22 22:00 81 18 121/73 (89) Room Air 06/08/22 21:00 78 18 105/57 (73) Room Air 06/08/22 20:00 37.3 06/08/22 20:00 75 18 114/75 (88) Room Air 06/08/22 19:00 76 18 121/73 (89) Room Air 06/08/22 18:00 83 18 124/79 (94) Room Air 06/08/22 17:00 36.6 91 18 80/76 (77) Room Air 06/08/22 16:15 100 18 123/76 (92) Room Air 06/08/22 15:45 100 18 123/76 (92) Room Air 06/08/22 15:10 102 18 156/70 (98) Room Air 06/08/22 14:50 86 18 136/71 (92) Room Air 06/08/22 14:40 95 18 133/82 (99) Room Air 06/08/22 14:25 101 18 131/80 (97) Room Air 06/08/22 14:10 105 18 126/75 (92) Room Air 06/08/22 13:51 37.0 107 18 96 Room Air I & O 06/09/22 07:00 Intake Total 2000 ml Balance 2000 ml Labs Laboratory Tests 06/08/22 14:15: White Blood Count 9.7, Red Blood Count 4.05, Hemoglobin 11.3L, Hematocrit 34L, Mean Corpuscular Volume 84, Mean Corpuscular Hemoglobin 28, Mean Corpuscular Hemoglobin Concent 33, Red Cell Distribution Width 13.2, Platelet Count 379, Mean Platelet Volume 9.9, Immature Granulocyte % (Auto) 0, Neutrophils (%) (Auto) 67, Lymphocytes (%) (Auto) 24, Monocytes (%) (Auto) 8, Eosinophils (%) (Auto) 1, Basophils (%) (Auto) 0, Neutrophils # (Auto) 6.4, Lymphocytes # (Auto) 2.3, Monocytes # (Auto) 0.8, Eosinophils # (Auto) 0.1, Basophils # (Auto) 0.0, Immature Granulocyte # (Auto) 0.0, Sodium Level 139, Potassium Level 3.5L, Chloride Level 107, Carbon Dioxide Level 21, Anion Gap 11, Blood Urea Nitrogen 6L, Creatinine 0.61, Estimat Glomerular Filtration Rate 130, BUN/Creatinine Ratio 10, Glucose Level 90, Calcium Level 8.9, Corrected Calcium 9.5, Total Bilirubin 0.2, Aspartate Amino Transf (AST/SGOT) 15, Alanine Aminotransferase (ALT/SGPT) 12, Alkaline Phosphatase 148H, Total Protein 6.5, Albumin 3.3, Syphilis Serology Non-Reactive MINNA JOEL MD Jun 09, 2022 07:18
[2022-06-09] MEDS ORDERED: IBUP-1773 PO (07:19)
[2022-06-09] MEDS ORDERED: NALOXONE 0.4 MG/ML 1 ML (NARCAN) VIAL IV PRN ×3 (07:30→09:00)
[2022-06-09] MEDS ORDERED: WITCH HAZEL(TUCKS) 40 EA JAR TOP PRN (07:30)
[2022-06-09] MEDS ORDERED: BENZOCAINE/MENTHOL (DERMOPLAST) 56 ML CAN TP PRN (07:30)
[2022-06-09] MEDS ORDERED: MEASLES,MUMPS,RUBELLA 1 EA INJ SQ ONE (07:30)
[2022-06-09] MEDS ORDERED: OXYTOCIN PRE-MIX DRIP 500 ML IV SCH (07:30)
[2022-06-09] MEDS ORDERED: TETANUS,DIPTH,PERTUSS P/F (BOOSTRIX) 0.5 ML VIAL IM ONE (07:30)
[2022-06-09] MEDS ORDERED: fentaNYL 2 mcg/ml BUPIVA 0.125 100 ML ONE (08:21)
[2022-06-09] MEDS: fentaNYL 2 mcg/ml BUPIVA 0.125 100 ML EPI SCH ×2 (08:53→14:26)
[2022-06-09] MEDS ORDERED: DOCUSATE SODIUM 100 MG (COLACE) CAP PO SCH (09:00)
[2022-06-09] MEDS ORDERED: METOCLOPRAMIDE INJ 10 MG/2 ML (REGLAN) IV PRN (09:00)
[2022-06-09] MEDS ORDERED: ONDANSETRON 4 MG/2 ML (SDV) Z0FRAN IV PRN (09:00)
[2022-06-09] MEDS ORDERED: LACTATED RINGERS 1,000 ML IV SCH (09:00)
[2022-06-09] MEDS ORDERED: CATHETER FLUSH 10 ML SYR IV SCH (14:00)
--- NOTE | 2022-06-09 19:55 | OB Labor & Delivery Record ---
L&D History Date of Service Date of Service: Jun 09, 2022 History Expected Date of Delivery: Jun 18, 2022 Gestational Age in Weeks: 38 Complications Events: Routine care Operative Indications (Cesarea: N/A-Vaginal Delivery Intrapartal Events: None L&D Stage1 Stage One Onset of Labor - Date: Jun 09, 2022 Monitors and Tracing Monitor Mode: Internal Heart Rate: 140 Monitor Decelerations: Variable Station: +2 Senior Care Variability: Average (6-10) Short Term Variability: Present Presentation: Vertex Vital Signs VS - Last 72 Hours, by Label 06/08/22 06/08/22 06/08/22 06/08/22 13:51 14:10 14:25 14:40 Temp 37.0 Pulse 107 105 101 95 Resp 18 18 18 18 B/P (MAP) 126/75 (92) 131/80 (97) 133/82 (99) Pulse Ox 96 O2 Delivery Room Air Room Air Room Air Room Air 06/08/22 06/08/22 06/08/22 06/08/22 14:50 15:10 15:45 16:15 Pulse 86 102 100 100 Resp 18 18 18 18 B/P (MAP) 136/71 (92) 156/70 (98) 123/76 (92) 123/76 (92) O2 Delivery Room Air Room Air Room Air Room Air 06/08/22 06/08/22 06/08/22 06/08/22 17:00 18:00 19:00 20:00 Temp 36.6 Pulse 91 83 76 75 Resp 18 18 18 18 B/P (MAP) 80/76 (77) 124/79 (94) 121/73 (89) 114/75 (88) O2 Delivery Room Air Room Air Room Air Room Air 06/08/22 06/08/22 06/08/22 06/08/22 20:00 21:00 22:00 23:00 Temp 37.3 Pulse 78 81 76 Resp 18 18 18 B/P (MAP) 105/57 (73) 121/73 (89) 119/73 (88) O2 Delivery Room Air Room Air Room Air 06/09/22 06/09/22 06/09/22 06/09/22 00:00 01:00 02:00 03:00 Pulse 77 73 78 72 Resp 18 18 18 18 B/P (MAP) 117/77 (90) 118/65 (82) 138/67 (90) 111/63 (79) O2 Delivery Room Air Room Air Room Air Room Air 06/09/22 06/09/22 06/09/22 06/09/22 04:00 04:30 05:15 05:30 Temp 36.9 Pulse 71 65 73 Resp 18 18 18 B/P (MAP) 119/81 (94) 128/73 (91) 131/77 (95) O2 Delivery Room Air Room Air Room Air 06/09/22 06/09/22 06/09/22 06/09/22 05:45 06:00 06:15 06:30 Pulse 85 76 71 92 Resp 18 18 18 18 B/P (MAP) 113/69 (84) 132/84 (100) 106/60 (75) 102/57 (72) O2 Delivery Room Air Room Air Room Air Room Air 06/09/22 06/09/22 06/09/22 06/09/22 06:45 07:00 07:15 07:30 Temp 36.6 Pulse 82 69 74 81 Resp 18 18 18 18 B/P (MAP) 114/74 (87) 128/78 (95) 125/77 (93) 134/90 (105) O2 Delivery Room Air Room Air Room Air Room Air 06/09/22 06/09/22 06/09/22 06/09/22 07:45 08:00 08:15 08:30 Pulse 72 92 92 88 Resp 18 18 18 18 B/P (MAP) 126/84 (98) 112/80 (91) 112/80 (91) 124/89 (101) O2 Delivery Room Air Room Air Room Air Room Air 06/09/22 06/09/22 06/09/22 06/09/22 08:40 08:45 08:50 08:55 Pulse 84 87 82 83 Resp 18 18 18 18 B/P (MAP) 129/82 (98) 137/82 (100) 123/82 (96) 128/70 (89) Pulse Ox 97 100 100 99 O2 Delivery Room Air Room Air Room Air Room Air 06/09/22 06/09/22 06/09/22 06/09/22 09:00 09:05 09:10 09:15 Pulse 80 72 75 75 Resp 18 18 18 18 B/P (MAP) 122/73 (89) 119/66 (83) 123/70 (87) 119/63 (81) Pulse Ox 99 99 99 100 O2 Delivery Room Air Room Air Room Air Room Air 06/09/22 06/09/22 06/09/22 06/09/22 09:20 09:25 09:30 09:45 Pulse 75 72 62 68 Resp 18 18 18 18 B/P (MAP) 114/66 (82) 123/76 (92) 113/69 (84) Pulse Ox 100 100 100 100 O2 Delivery Room Air Room Air Room Air Room Air 06/09/22 06/09/22 06/09/22 06/09/22 10:00 10:15 10:30 10:45 Pulse 67 77 89 89 Resp 18 18 18 18 B/P (MAP) 106/64 (78) 116/75 (89) Pulse Ox 100 100 100 100 O2 Delivery Room Air Room Air Room Air Room Air 06/09/22 06/09/22 06/09/22 06/09/22 11:00 11:15 11:30 11:45 Pulse 69 84 73 67 Resp 18 18 18 18 B/P (MAP) 114/55 (74) 111/76 (88) 118/59 (78) 109/77 (88) Pulse Ox 100 100 100 100 O2 Delivery Room Air Room Air Room Air Room Air 06/09/22 06/09/22 06/09/22 06/09/22 12:00 12:15 12:30 12:45 Pulse 83 75 75 80 Resp 18 18 18 18 B/P (MAP) 120/73 (89) 119/81 (94) 120/66 (84) 121/79 (93) Pulse Ox 100 100 99 100 O2 Delivery Room Air Room Air Room Air Room Air 06/09/22 06/09/22 06/09/22 06/09/22 13:00 13:15 13:30 13:45 Temp 36.5 Pulse 75 73 71 82 Resp 18 18 18 18 B/P (MAP) 122/80 (94) 118/75 (89) 117/75 (89) 109/60 (76) Pulse Ox 100 100 100 100 O2 Delivery Room Air Room Air Room Air Room Air 06/09/22 06/09/22 06/09/22 06/09/22 14:00 14:15 14:30 14:45 Pulse 80 79 85 105 Resp 18 18 18 18 B/P (MAP) 109/59 (76) 109/60 (76) 113/57 (75) 123/84 (97) Pulse Ox 99 100 100 100 O2 Delivery Room Air Room Air Room Air Room Air 06/09/22 06/09/22 06/09/22 06/09/22 15:00 15:15 15:30 15:45 Pulse 91 80 77 76 Resp 18 18 18 18 B/P (MAP) 111/59 (76) 102/58 (73) 120/80 (93) Pulse Ox 100 100 99 100 O2 Delivery Room Air Room Air Room Air Room Air 06/09/22 06/09/22 06/09/22 06/09/22 16:00 16:15 16:30 16:45 Pulse 133 Resp 18 B/P (MAP) 100/78 (85) O2 Delivery Room Air Room Air Room Air Room Air 06/09/22 06/09/22 06/09/22 06/09/22 17:00 17:15 17:30 17:45 Pulse 93 93 93 87 Resp 18 18 18 18 B/P (MAP) 140/83 (102) 125/72 (89) 128/80 (96) 103/58 (73) O2 Delivery Room Air Room Air Room Air Room Air 06/09/22 06/09/22 06/09/22 06/09/22 18:00 18:15 18:30 18:45 Temp 37.7 Pulse 86 93 103 Resp 18 18 18 B/P (MAP) 132/80 (97) 119/80 (93) 132/89 (103) O2 Delivery Room Air Room Air Room Air Room Air 06/09/22 06/09/22 19:00 19:15 Pulse 102 Resp 18 18 B/P (MAP) 132/76 (94) 140/70 (93) O2 Delivery Room Air Room Air Rupture of Membranes Amniotic Membrane Rupture Time: 07 Vaginal Bleeding Description: Normal Show Induction/Anesthesia Epidural Cath Placement - Time: 845 Progress/Notes Patient admitted for IOL yesterday by partner Dr. Walker who did a valencia bulb cervical ripening overnight, followed by pitocin and AROM this AM. Epidural placed. Patient slowly progressed to complete and + 2 station. L&D Stage2 Stage Two Stage II Date: Jun 09, 2022 Monitors and Tracing Monitor Mode: Internal Heart Rate: 140 Monitor Accelerations: Uniform Monitor Decelerations: Variable Senior Care Variability: Average (6-10) Short Term Variability: Present Position: Right Occiput Anterior Presentation: Vertex Cord Descript/Complications Cord Vessel Description: 3 Vessels Delivery Type Delivery Method: Spontaneous Vaginal Anterior Shoulder: Left Episiotomy/Perineal Laceration Laceraction(s)/Extensions: Yes Episiotomy Description: Midline (midline repaired using 3-0 rapide in usual fashion) Condition of Infant Delivery 1 minute Comment: 8 5 minute Comment: 9 Notes Live male weight 8lbs 6 oz Condition of Condition of : Living Exam: No Observed Abnormalities Resuscitation Resuscitation: N/A - Spontaneous Resp L&D Stage3 Stage Three Stage III Date: Jun 09, 2022 Pictocin Pitocin Administration mu/min: 20 Pitocin ml/hr: 20 Pitocin Administration Comment: 30 mu wide open after delivery of placenta Placenta Delivery Placenta Delivery: Spontaneous Delivery Summary Summary Estimated blood loss (mL): 350 Attending at delivery: Brice Lake DO Condition of Delivery Examined: Cervix Examined, Uterus Explored Post Hemorrhage: No Condition of Mother stable Condition of (s) stable BRICE LAKE DO Jun 09, 2022 19:55
[2022-06-09] MEDS ORDERED: HYDROcodone/APAP 5 MG/325 MG (LORTAB) TAB PO PRN (20:00)
--- NOTE | 2022-06-09 20:02 | Discharge Inst-Women's Service ---
Discharge Inst-Women's Serv Depart Medication/Instructions New, Converted or Re-Newed RX: Transmitted to Pharmacy Final Diagnosis PPD 1 NVD Problems Reviewed?: Yes Consults/Follow Up Additional Follow Up: Yes Orders/Referrals Dr. Lake/Jarod in 6 weeks Activity Activity: Activity as Tolerated Driving Instructions: No Driving for 1 Week NO SMOKING: NO SMOKING Nothing Inside Vagina: No Douching, No [place], No Tampons Diet Discharge Diet: No Restrictions Symptoms to Report to : Bleeding Excessive, Pain Increased, Fever Over 101 Degrees F, Vaginal Bleeding Increase, Questions/Concerns BRICE LAKE DO Jun 09, 2022 20:02
[2022-06-09] MEDS: ACETAMINOPHEN 500 MG TAB (TYLENOL) PO SCH (22:30)
[2022-06-09] MEDS: IBUPROFEN 600 MG (MOTRIN) TAB PO SCH (22:30)
[2022-06-10 04:30] VITALS: BP 98/54
[2022-06-10] MEDS: ACETAMINOPHEN 500 MG TAB (TYLENOL) PO SCH ×3 (04:53→18:36)
[2022-06-10] MEDS: IBUPROFEN 600 MG (MOTRIN) TAB PO SCH ×3 (04:53→18:36)
[2022-06-10 08:29] VITALS: BP 103/69
--- NOTE | 2022-06-10 08:58 | Postpartum Progress Note ---
Note Note Day # 1 Subjective: Patient is without complaints. Ambulating, voiding. Tolerating a regular diet without nausea or vomiting. Normal lochia. Pain is well controlled with oral pain medications. Physical Exam: General - Alert and oriented, no apparent distress Abdomen - Soft, appropriately tender to palpation, non-distended, fundus firm at umbilicus Extremities - no edema, negative Jitendra's bilaterally Assessment: Post- day # 1, status post vaginal delivery. Recovering well, hemodynamically stable Acute blood loss anemia Plan: Routine care. Encourage breast feeding. Encourage ambulation. Ferrous sulfate supplementation. Plan for discharge today Vitals - Labs Vital Signs - I&O Vital Signs Date Time Temp Pulse Resp B/P (MAP) Pulse Ox O2 Delivery O2 Flow Rate FiO2 06/10/22 08:29 36.0 80 18 103/69 (80) 99 06/10/22 04:30 36.1 76 16 98/54 (69) 98 Room Air 06/09/22 23:14 36.8 94 18 136/76 (96) 97 Room Air 06/09/22 20:06 37.8 96 18 130/66 (87) 06/09/22 19:15 18 140/70 (93) Room Air 06/09/22 19:00 102 18 132/76 (94) Room Air 06/09/22 18:45 103 18 132/89 (103) Room Air 06/09/22 18:30 Room Air 06/09/22 18:15 93 18 119/80 (93) Room Air 06/09/22 18:00 37.7 86 18 132/80 (97) Room Air 06/09/22 17:45 87 18 103/58 (73) Room Air 06/09/22 17:30 93 18 128/80 (96) Room Air 06/09/22 17:15 93 18 125/72 (89) Room Air 06/09/22 17:00 93 18 140/83 (102) Room Air 06/09/22 16:45 Room Air 06/09/22 16:30 Room Air 06/09/22 16:15 Room Air 06/09/22 16:00 133 18 100/78 (85) Room Air 06/09/22 15:45 76 18 120/80 (93) 100 Room Air 06/09/22 15:30 77 18 102/58 (73) 99 Room Air 06/09/22 15:15 80 18 100 Room Air 06/09/22 15:00 91 18 111/59 (76) 100 Room Air 06/09/22 14:45 105 18 123/84 (97) 100 Room Air 06/09/22 14:30 85 18 113/57 (75) 100 Room Air 06/09/22 14:15 79 18 109/60 (76) 100 Room Air 06/09/22 14:00 80 18 109/59 (76) 99 Room Air 06/09/22 13:45 82 18 109/60 (76) 100 Room Air 06/09/22 13:30 71 18 117/75 (89) 100 Room Air 06/09/22 13:15 73 18 118/75 (89) 100 Room Air 06/09/22 13:00 36.5 75 18 122/80 (94) 100 Room Air 06/09/22 12:45 80 18 121/79 (93) 100 Room Air 06/09/22 12:30 75 18 120/66 (84) 99 Room Air 06/09/22 12:15 75 18 119/81 (94) 100 Room Air 06/09/22 12:00 83 18 120/73 (89) 100 Room Air 06/09/22 11:45 67 18 109/77 (88) 100 Room Air 06/09/22 11:30 73 18 118/59 (78) 100 Room Air 06/09/22 11:15 84 18 111/76 (88) 100 Room Air 06/09/22 11:00 69 18 114/55 (74) 100 Room Air 06/09/22 10:45 89 18 100 Room Air 06/09/22 10:30 89 18 100 Room Air 06/09/22 10:15 77 18 116/75 (89) 100 Room Air 06/09/22 10:00 67 18 106/64 (78) 100 Room Air 06/09/22 09:45 68 18 113/69 (84) 100 Room Air 06/09/22 09:30 62 18 100 Room Air 06/09/22 09:25 72 18 123/76 (92) 100 Room Air 06/09/22 09:20 75 18 114/66 (82) 100 Room Air 06/09/22 09:15 75 18 119/63 (81) 100 Room Air 06/09/22 09:10 75 18 123/70 (87) 99 Room Air 06/09/22 09:05 72 18 119/66 (83) 99 Room Air 06/09/22 09:00 80 18 122/73 (89) 99 Room Air I & O 06/10/22 07:00 Intake Total 2600 ml Balance 2600 ml DAVID VIZCAINO APRN Jun 10, 2022 08:58
--- NOTE | 2022-06-10 09:59 | Anesthesia-Regional Post-Op ---
Regional Patient Condition Mental Status: Alert, Oriented x3 Circulation: Same as Pre-Op Headache: Absent Sensation: Full Recovery Motor Block: Absent Post Op Complications Complications None Follow Up Care/Instructions Patient Instructions None needed. Anesthesia/Patient Condition Patient is doing well, no complaints, stable vital signs, no apparent adverse anesthesia problems. No complications reported per nursing. KELLY MARTINEZ CRNA Jun 10, 2022 09:59
[2022-06-10 13:45] VITALS: BP 120/76
[2022-06-10 18:35] VITALS: BP 112/74
== END 2022-06-10 20:40 | disposition home or self-care (01) | DRG 806 ==
LOC: LDRP 13:51
PROVIDERS: ADMIT Obstetrics & Gynecology; ATTEND Obstetrics & Gynecology
PROC: 3E033VJ Introduction of Other Hormone into Peripheral Vein, Percutaneous Approach (ICD-10-PCS; 2022-06-08)
PROC: 3E0P7GC Introduction of Other Therapeutic Substance into Female Reproductive, Via Natural or Artificial Opening (ICD-10-PCS; 2022-06-08)
PROC: 10E0XZZ Delivery of Products of Conception, External Approach (ICD-10-PCS; principal; 2022-06-09)
PROC: 0W8NXZZ Division of Female Perineum, External Approach (ICD-10-PCS; 2022-06-09)
PROC: 10907ZC Drainage of Amniotic Fluid, Therapeutic from Products of Conception, Via Natural or Artificial Opening (ICD-10-PCS; 2022-06-09)
DX: O13.4 Gestational [pregnancy-induced] hypertension without significant proteinuria, complicating childbirth (principal); D62 Acute posthemorrhagic anemia; Z37.0 Single live birth; Z3A.38 38 weeks gestation of pregnancy; O90.81 Anemia of the puerperium
CPT/HCPCS: 36415; 80053; 85025; 86780; 86850; 86900; 86901

== ENCOUNTER → 2022-08-10 | Outpatient (CLI) | payer OTHER | LOC: FS 15:50 | PROVIDERS: ATTEND Family Medicine | DX: N89.8 Other specified noninflammatory disorders of vagina (principal); F53.0 Postpartum depression | CPT/HCPCS: 87210 ==

== ENCOUNTER → 2023-04-14 | Outpatient (CLI) | payer OTHER | LOC: LAB FS 10:29 | PROVIDERS: ATTEND Registered Nurse Emergency | DX: Z00.8 Encounter for other general examination (principal); Z11.1 Encounter for screening for respiratory tuberculosis | CPT/HCPCS: 36415; 86480 ==